=== PATIENT | male | born 1965 | race Caucasian/White ===

== ENCOUNTER → 2024-07-13 | Outpatient (CLI) | payer BC ==
--- NOTE | 2024-07-14 00:17 | US ---
EXAMINATION TYPE: US venous doppler duplex LE BI DATE OF EXAM: 07/13/2024 3:19 PM COMPARISON: NONE CLINICAL INDICATION: Male, 59 years old with history of M79.662 PAIN IN LOWER LIMB; pain in left leg. No hx of DVT SIDE PERFORMED: Bilateral TECHNIQUE: The lower extremity deep venous system is examined utilizing real time linear array sonog bisi with graded compression, doppler sonography and color-flow sonography. VESSELS IMAGED: Common Femoral Vein Deep Femoral Vein Greater Saphenous Vein * Femoral Vein Popliteal Vein Small Saphenous Vein * Proximal Calf Veins (* superficial vessels) Right Leg: No evidence for DVT Left Leg: No evidence for DVT IMPRESSION: 1. Bilateral lower extremity ultrasound negative for deep venous thrombosis. [facility], , 07/14/2024 12:15 AM
== END | disposition home or self-care (01) ==
LOC: RADUSWWP 14:56
PROVIDERS: ATTEND Internal Medicine Interventional Cardiology
DX: M79.662 Pain in left lower leg (principal)
CPT/HCPCS: 93970